=== PATIENT | female | born 1975 | race Caucasian/White ===

== ENCOUNTER 2021-09-18 03:26 | Emergency (ER) | payer OTHER ==
[~2021-09-18] VITALS: Ht 167.6 cm; Wt 63.5 kg
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
[2021-09-18] MEDS ORDERED: AMOXICILLIN-CLAVUL 875-125MG TABLET PO ONE (04:15)
[2021-09-18] MEDS ORDERED: IBUPROFEN 600 MG TABLET PO ONE (04:15)
--- NOTE | 2021-09-18 04:15 | NUR ---
DR. BLANK DID NOT ORDER TEST FOR XRAY, PT STRONGLY STATES THAT THERE IS NO POSSIBILITY OF HER BEING . EDUCATED PT OF RISK AND BENEFITS OF XRAY, PT VERBALIZED UNDERSTANDING AND CONSENTED TO XRAY WITHOUT TEST.
--- NOTE | 2021-09-18 04:20 | NUR ---
Just administered meds to pt.
[2021-09-18] MEDS ORDERED: IBUPROFEN 600 MG TABLET ONE (04:22)
[2021-09-18] MEDS ORDERED: AMOXICILLIN-CLAVUL 875-125MG TABLET ONE (04:23)
--- NOTE | 2021-09-18 04:32 | NUR ---
XR tech at bedside shooting xr. exam completed without difficulty
--- NOTE | 2021-09-18 04:46 | NUR ---
EDMD came to nurses station to check on Xrays. XRs not complete bc PXR wasnt working and tech and to switch them out. medical technologist chemistry reshooting xrays now.
--- NOTE | 2021-09-18 05:02 | NUR ---
EDMD placed call to xr to see if xrays were resulted.
[2021-09-18] MEDS ORDERED: IBUP-1955 PO (05:24)
[2021-09-18] MEDS ORDERED: AMOX-430 PO (05:24)
[2021-09-18] MEDS ORDERED: ALBU8.5H8 INH (05:24)
--- NOTE | 2021-09-18 05:30 | NUR ---
EDMD at bedside to discuss results and pt's dispo. EDMD enumerated what he was going to do for pt, including write her a prescribtion for an inhaler, an abx for the ear infection, high dose motrin for pain, and he agreed to write her for some flexeril for her back issues. Pt is very greatful for services provided and bc the EDMD was so accomodating to her.
--- NOTE | 2021-09-18 05:39 | NUR ---
Pt given DC instructions and confirmed understanding of DC instructions. VSS, pe wnl, oxygenating and perfusing well, denies any pain, sob, dizziness, n/v or discomfort. Addendum: 09/18/21 at 0549 by KEELY no s/sx of distress present. pt signed DC instructions and ambulated out of dept with steady gait.
[2021-09-18] MEDS ORDERED: CYCL10TA9 PO (05:43)
[2021-09-18 05:52] VITALS: BP 138/85
== END 2021-09-18 05:39 | disposition home or self-care (01) ==
LOC: ER 03:40
DX: H65.92 Unspecified nonsuppurative otitis media, left ear (principal); H72.92 Unspecified perforation of tympanic membrane, left ear; F17.210 Nicotine dependence, cigarettes, uncomplicated; J45.909 Unspecified asthma, uncomplicated; G89.29 Other chronic pain; M41.9 Scoliosis, unspecified; S39.012A Strain of muscle, fascia and tendon of lower back, initial encounter; V49.50XA Passenger injured in collision with unspecified motor vehicles in traffic accident, initial encounter; Y92.410 Unspecified street and highway as the place of occurrence of the external cause
CPT/HCPCS: 72100; A4663